=== PATIENT | female | born 1950 ===

== ENCOUNTER → 2020-08-14 | Outpatient (CLI) | payer MEDICARE | LOC: LAB 09:45 → LAB SHORT 09:45 | DX: R30.0 Dysuria (principal) | CPT/HCPCS: 87077; 87086; 87186 ==

== ENCOUNTER → 2021-03-01 | Outpatient (CLI) | payer MEDICARE | END | disposition home or self-care (01) | LOC: LAB SHORT 18:12 → LAB 18:12 | DX: R35.0 Frequency of micturition (principal) | CPT/HCPCS: 87086 ==

== ENCOUNTER 2022-08-28 07:26 | Day surgery (SDC) | payer MEDICARE ==
[~2022-08-28] VITALS: Ht 170.2 cm; Wt 56.1 kg
[~2022-08-28 07:26] MED LIST: LATANOPROST2.5 M3 OP; LISI5
[2022-08-28] MEDS ORDERED: VITAMIN D310 MC4 (07:37)
[2022-08-28] MEDS ORDERED: Vitamin B Comple1 EA (07:38)
[2022-08-28 09:44] VITALS: BP 106/63
== END 2022-08-28 09:46 | disposition home or self-care (01) ==
LOC: ORSCSDS 07:26
PROVIDERS: Internal Medicine Gastroenterology
PROC: 0DBN8ZX Excision of Sigmoid Colon, Via Natural or Artificial Opening Endoscopic, Diagnostic (ICD-10-PCS; principal; 2022-08-28 08:45)
PROC: 0DBK8ZX Excision of Ascending Colon, Via Natural or Artificial Opening Endoscopic, Diagnostic (ICD-10-PCS; principal; 2022-08-28 08:45)
DX: K62.5 Hemorrhage of anus and rectum (principal); Z86.010 Personal history of colon polyps; D12.2 Benign neoplasm of ascending colon; D12.5 Benign neoplasm of sigmoid colon; K64.1 Second degree hemorrhoids; I10 Essential (primary) hypertension; Z79.899 Other long term (current) drug therapy
CPT/HCPCS: 88305; J2704; J7120